=== PATIENT | female | born 1975 | race Caucasian/White ===

== ENCOUNTER 2019-02-06 17:17 | Emergency (ER) | payer OTHER ==
[~2019-02-06] VITALS: Ht 165.1 cm; Wt 64.0 kg
[2019-02-06] MEDS ORDERED: D-ME118S2 PO (17:46)
[2019-02-06] MEDS ORDERED: MELO7.5T29 PO (17:46)
[2019-02-06] MEDS ORDERED: HYDR-3165 PO (17:46)
--- NOTE | 2019-02-06 17:47 | PHYS DOC ---
Past History Past Medical History: No Pertinent History Past Surgical History: Hysterectomy, Other Smoking: Non-smoker Alcohol Use: None Drug Use: None Adult General Chief Complaint Chief Complaint: Neck Pain HPI HPI Patient is a 43-year-old female presents complaining of right-sided facial pain. This started approximately 3 days ago. She was seen by her dentist 2 days ago who felt that was not a dental issue. She was seen by her primary care physician yesterday and started on Augmentin of which she has had 2 doses without any significant improvement in the pain. No pain medicine other than [id number] ibuprofen was advised. Talking to the patient's daughter who presents with the patient, there is some swelling of the right facial region. Nothing seems to make the discomfort significantly better or worse. Pain is severe in intensity. There has been no fever. No change in vision. No photo or phonophobia.[] Review of Systems Review of Systems Constitutional: Denies fever or chills [] Eyes: Denies change in visual acuity, redness, or eye pain [] HENT: Denies nasal congestion or sore throat [] Respiratory: Denies cough or shortness of breath [] Cardiovascular: No chest pain or palpitations[] GI: Denies abdominal pain, nausea, vomiting, bloody stools or diarrhea [] : Denies dysuria or hematuria [] Musculoskeletal: Denies back pain or joint pain [] Integument: Denies rash or skin lesions [] Neurologic: Denies headache, focal weakness or sensory changes [] Endocrine: Denies polyuria or polydipsia [] All other systems were reviewed and found to be within normal limits, except as documented in this note. Allergies Allergies Allergies Coded Allergies Type Severity Reaction Last Updated Verified No Known Drug Allergies 02/06/19 No Physical Exam Physical Exam Constitutional: Well developed, well nourished, mild discomfort, non-toxic appearance. [] HENT: Normocephalic, atraumatic, bilateral external ears normal, oropharynx moist, no oral exudates, nose normal. No dental tenderness to percussion. There is swelling over the right zygoma. Decreased transillumination over the right maxillary sinus. Tenderness to percussion over the right maxillary sinus.[] Eyes: PERRLA, EOMI, conjunctiva normal, no discharge. [] Neck: Normal range of motion, no tenderness, supple, no stridor. Shotty lymphadenopathy is present. No nuchal rigidity. [] Cardiovascular:Heart rate regular rhythm, no murmur [] Lungs & Thorax: Bilateral breath sounds clear to auscultation [] Abdomen: Not examined. [] Skin: Warm, dry, no erythema, no rash. [] Back: No tenderness, no CVA tenderness. [] Extremities: No tenderness, no cyanosis, no clubbing, ROM intact, no edema. [] Neurologic: Alert and oriented X 3, normal motor function, normal sensory function, no focal deficits noted. [] Psychologic: Affect normal, judgement normal, mood normal. [] Current Patient Data Vital Signs Vital Signs Date Time Temp Pulse Resp B/P (MAP) Pulse Ox O2 Delivery O2 Flow Rate FiO2 02/06/19 17:20 98.6 84 20 99 Room Air EKG EKG [] Radiology/Procedures Radiology/Procedures [] Course & Med Decision Making Course & Med Decision Making Pertinent Labs and Imaging studies reviewed. (See chart for details) Medical decision making: Patient appears to have mastoiditis. She is on antibiotics. Do not believe that these have had enough time to exert and the fact versus this being a viral process. There is no evidence of meningitis or encephalitis. We will attempt better pain management as well as decongestant therapy.[] Dragon Disclaimer Dragon Disclaimer This electronic medical record was generated, in whole or in part, using a voice recognition dictation system. Departure Departure: Impression: Primary Impression: Sinusitis Disposition: 01 HOME, SELF-CARE Condition: IMPROVED Referrals: JAM ROSALES (PCP) Follow-up in 2 days Patient Instructions: Sinusitis Additional Instructions: Drink plenty of fluids. Follow-up with your regular doctor in 2 days. Take medication as prescribed. Return to the ER if worsening discomfort or any other concerns. Scripts D-Methorphan Hb/Prometh Hcl (PROMETHAZINE-DM SYRUP) 118 Ml Syrup 5 ML PO PRN Q4HRS for CONGESTION, #120 ML Prov: TENZIN CAHCON DO 02/06/19 Hydrocodone Bit/Acetaminophen (NORCO 5-325 TABLET) 1 Each Tablet 1-2 TAB PO Q4-6HRS for severe pain, #20 TAB Prov: TENZIN CHACON DO 02/06/19 Meloxicam (MELOXICAM) 7.5 Mg Tablet 7.5 MG PO DAILY for PAIN, #20 TAB Prov: TENZIN CHACON DO 02/06/19 Problem Qualifiers Primary Impression: Sinusitis Sinusitis location: maxillary Chronicity: acute Recurrence: not specified as recurrent Qualified Codes: J01.00 - Acute maxillary sinusitis, unspecified TENZIN CHACON DO February 06, 2019 17:47
[2019-02-06 17:50] VITALS: BP 136/87
[2019-02-06] MEDS ORDERED: HYDROcodone/APAP 5/325MG 1 TAB TABLET PO ONE (18:00)
== END 2019-02-06 17:55 | disposition home or self-care (01) ==
LOC: ER 17:17
DX: J01.00 Acute maxillary sinusitis, unspecified (principal)
CPT/HCPCS: 99283

== ENCOUNTER 2022-01-23 18:29 | Emergency (ER) | payer OTHER ==
[~2022-01-23] VITALS: Ht 165.1 cm; Wt 75.0 kg
[~2022-01-23 18:29] MED LIST: HYDR-3165 PO; MELO7.5T29 PO; PROM118S10 PO
--- NOTE | 2022-01-23 19:26 | PHYS DOC ---
Past History Past Medical History: No Pertinent History Past Surgical History: Hysterectomy, Other Smoking: Non-smoker Alcohol Use: None Drug Use: None General Adult EDM: Chief Complaint: ABDOMINAL PAIN HPI: HPI: "This all started Friday... Some abdomen pain... then started... Nausea, vomiting and diarrhea. Patient had approximately 12 diarrheas a day. 4 vomits a day....I . Was seen at [facility]... They put me on Lomotil.." Patient is a 46 year old female who presents with above hx and complaints acute gastroenteritis of nausea, vomiting, diarrhea and abdomen pain. Patient denies any specific intake of bad food. No recent travel. has not been overseas and is retired Works on the [employer]. 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 Has been exposed to kids that have been ill. Patient has had COVID vaccinations x2 has had flu vaccination this season. No history of irritable bowel, colitis, trauma, fever or chills. Does have generalized malaise and arthralgia. Patient states she feels like she is getting dehydrated there is some localization of pain in epigastric and right upper quadrant on rebound. Pt. has generalized abdomen tenderness. Review of Systems: Review of Systems: Constitutional: Denies fever or chills Eyes: Denies change in visual acuity HENT: Denies nasal congestion or sore throat Respiratory: Denies cough or shortness of breath Cardiovascular: Denies chest pain or edema GI: Complains of abdominal pain, nausea, vomiting, and diarrhea : Denies dysuria Musculoskeletal: Denies back pain or joint pain Integument: Denies rash Neurologic: Denies headache, focal weakness or sensory changes Endocrine: Denies polyuria or polydipsia Lymphatic: Denies swollen glands Psychiatric: Denies depression or anxiety Family History: Family History: Gallbladder disease with mother she had hers out at approximately age 46 Current Medications: Current Meds: See nursing for home meds Allergies: Allergies: Allergies Coded Allergies Type Severity Reaction Last Updated Verified No Known Drug Allergies 02/06/19 No Physical Exam: PE: Constitutional: Moderate acute distress, non-toxic appearance. [] HENT: Normocephalic, atraumatic, bilateral external ears normal, oropharynx dry, no oral exudates, nose normal. [] Eyes: PERRLA, EOMI, conjunctiva normal, no discharge. [] Neck: Normal range of motion, no tenderness, supple, no stridor. [] Cardiovascular:Heart rate regular rhythm, no murmur [] Lungs & Thorax: Bilateral breath sounds equal at apex auscultation [] Abdomen: Bowel sounds hyperactive, soft, normalize tenderness, no masses, no pulsatile masses. Rebound to epigastric and right upper quadrant. Old surgery scar. Skin: Warm, dry, no erythema, no rash. [] Back: No tenderness, no CVA tenderness. [] Extremities: No tenderness, no cyanosis, no clubbing, ROM intact, no edema. No Trousseau sign. No cording. Neurologic: Alert and oriented X 3, normal motor function, normal sensory function, no focal deficits noted. [] Psychologic: Affect anxious,, judgement normal, mood normal. [] EKG: EKG: My interpretation EKG shows a sinus rhythm at 61 bpm with right bundle branch block. No findings of acute STEMI of contralateral changes. [] Radiology/Procedures: Radiology/Procedures: [][place] [address] IMAGING REPORT Signed PATIENT: SUJATA RUSHING ACCOUNT: [id number] : 1975 LOCATION: ER AGE: 46 SEX: F EXAM STATUS: REG ER ORD. PHYSICIAN: ALEN ANN MD REASON: Abdomen pain, nausea, vomiting, diarrhea PROCEDURE: ACUTE ABDOMEN SERIES EXAMINATION: XR ABDOMEN COMP ACUTE CLINICAL HISTORY: Abdomen pain, nausea, vomiting, diarrhea EXAM DATE/TIME: 01/23/2022 8:37 PM COMPARISON: None FINDINGS: Lines, Tubes, and Devices: None. Cardiomediastinal Silhouette: Borderline cardiomegaly. Lungs and Pleura: No evidence of focal airspace consolidation, pleural effusion, or pneumothorax. Bones and Soft Tissues: No acute osseous abnormality. Mild dextroconvex curvature in the lumbar spine, possibly positional. Abdomen: Nonobstructive bowel gas pattern. No evidence of pneumoperitoneum or suspicious abdominal calcifications. IMPRESSION: Nonobstructive bowel gas pattern. Borderline cardiomegaly. Electronically signed by: Ayaz Ceron DO (01/23/2022 9:31 PM) [facility] DICTATED AND SIGNED BY: AYAZ CERON DO DATE: 01/23/222128 CC: JAM ROSALES; ALEN ANN MD ~ Heart Score: C/O Chest Pain: N/A Risk Factors: Risk Factors: DM, Current or recent (<one month) smoker, HTN, HLP, family history of CAD, obesity. Risk Scores: Score 0 - 3: 2.5% MACE over next 6 weeks - Discharge Home Score 4 - 6: 20.3% MACE over next 6 weeks - Admit for Clinical Observation Score 7 - 10: 72.7% MACE over next 6 weeks - Early Invasive Strategies Course & Med Decision Making: Course & Med Decision Making Pertinent Labs and Imaging studies reviewed. (See chart for details) Stay on a clear fluid diet only for the next 2 days. No solids. No milk products. Follow-up primary care. Take Zofran 8 mg at 4 times a day for active vomiting. Tylenol and ibuprofen for discomfort. Impression: 1. Abdomen pain 2. Acute gastroenteritis nausea vomiting and diarrhea 3. Dehydration. [] Dragon Disclaimer: Dragon Disclaimer: This electronic medical record was generated, in whole or in part, using a voice recognition dictation system. Departure Departure: Referrals: JAM ROSALES (PCP) Scripts Ondansetron (ONDANSETRON ODT) 8 Mg Tab.rapdis 8 MG PO QIDPRN PRN for nv, #30 TAB Prov: ALEN ANN MD 01/24/22 Annita Disclaimer This chart was dictated in whole or in part using Voice Recognition software in a busy, high-work load, and often noisy Emergency Department environment. It may contain unintended and wholly unrecognized errors or omissions. ALEN ANN MD January 23, 2022 19:26
[2022-01-23] MEDS ORDERED: IV RINGERS SOLUTION,LACTATED 1,000 ML IV SCH (20:15)
[2022-01-23] MEDS ORDERED: KETOROLAC 30 MG/ML VIAL. IVP ONE (20:15)
[2022-01-23] MEDS ORDERED: FAMOTIDINE 20 MG/2 ML VIAL IVP ONE (20:15)
[2022-01-23] MEDS ORDERED: ONDANSETRON PF 4 MG/2 ML VIAL. IVP ONE ×2 (20:15→22:30)
[2022-01-23 20:24] LABS: BACTERIA,URINE FEW /HPF (0-FEW); CLARITY,URINE CLEAR; COLOR,URINE YELLOW; GLUCOSE,URINE NEG (NEG); NITRITE,URINE NEG (NEG); RBC,URINE 0 /HPF (0-2); SQUAMOUS EPITHELIAL CELL,UR FEW /LPF; UROBILINOGEN,URINE 0.2 mg/dL (0.2 mg/dL)
[2022-01-23] MEDS ORDERED: ONDANSETRON PF 4 MG/2 ML VIAL. ONE ×2 (20:41→20:46)
[2022-01-23] MEDS ORDERED: FAMOTIDINE 20 MG/2 ML VIAL ONE (20:41)
[2022-01-23] MEDS ORDERED: KETOROLAC 30 MG/ML VIAL. ONE (20:41)
--- NOTE | 2022-01-23 21:34 | RAD ---
EXAMINATION: XR ABDOMEN COMP ACUTE CLINICAL HISTORY: Abdomen pain, nausea, vomiting, diarrhea EXAM DATE/TIME: 01/23/2022 8:37 PM COMPARISON: None FINDINGS: Lines, Tubes, and Devices: None. Cardiomediastinal Silhouette: Borderline cardiomegaly. Lungs and Pleura: No evidence of focal airspace consolidation, pleural effusion, or pneumothorax. Bones and Soft Tissues: No acute osseous abnormality. Mild dextroconvex curvature in the lumbar spine , possibly positional. Abdomen: Nonobstructive bowel gas pattern. No evidence of pneumoperitoneum or suspicious abdominal ca lcifications. IMPRESSION: Nonobstructive bowel gas pattern. Borderline cardiomegaly. Electronically signed by: Ayaz Tracy DO (01/23/2022 9:31 PM) [email or web address]
[2022-01-23 23:06] LABS: BASO % 1 % (0-3); EOS # 0.3 x10^3/uL (0.0-0.7); EOS % 3 % (0-3); HEMOGLOBIN 14.2 g/dL (12.0-15.5); LYMPH # 2.3 x10^3/uL (1.0-4.8); LYMPH % 26 % (24-48); MEAN CORPUSCULAR HEMOGLOBIN 30 pg (25-35); MEAN CORPUSCULAR HGB CONC 34 g/dL (31-37); MEAN CORPUSCULAR VOLUME 87 fL (79-100); MONO # 0.7 x10^3/uL (0.0-1.1); MONO % 8 % (0-9); NEUT # 5.5 x10^3uL (1.8-7.7); NEUT % 62 % (31-73); PLATELET COUNT 249 x10^3/uL (140-400); RED BLOOD COUNT 4.83 x10^6/uL (3.50-5.40); RED CELL DISTRIBUTION WIDTH 13.1 % (11.5-14.5); WHITE BLOOD COUNT 8.9 x10^3/uL (4.0-11.0)
[2022-01-23 23:09] LABS: ANION GAP 8 (6-14); BLOOD UREA NITROGEN 9 mg/dL (7-20); CALCIUM 8.8 mg/dL (8.5-10.1); CARBON DIOXIDE 26 mmol/L (21-32); CHLORIDE 106 mmol/L (98-107); CREATININE 0.6 mg/dL (0.6-1.0); GFR 108.6; GLUCOSE 80 mg/dL (70-99); POTASSIUM 3.6 mmol/L (3.5-5.1); SODIUM 140 mmol/L (136-145)
[2022-01-23 23:16] LABS: ALBUMIN 3.3 g/dL (3.4-5.0); ALK PHOS 85 U/L (46-116); ALT (SGPT) 25 U/L (14-59); AMYLASE 53 U/L (25-115); AST (SGOT) 13 U/L (15-37); LIPASE 80 U/L (73-393); TOTAL BILIRUBIN 0.2 mg/dL (0.2-1.0); TOTAL PROTEIN 6.2 g/dL (6.4-8.2)
--- NOTE | 2022-01-23 23:19 | EKG ---
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
[2022-01-23 23:27] LABS: DIRECT BILIRUBIN < 0.1 mg/dL (0.0-0.2)
[2022-01-23] MEDS ORDERED: MORPHINE SULFATE 10 MG/ML SYRINGE. SQ ONE (23:30)
[2022-01-23] MEDS ORDERED: MORPHINE SULFATE 10 MG/ML SYRINGE. ONE (23:30)
[2022-01-24 01:00] VITALS: BP 110/62
[2022-01-24] MEDS ORDERED: ONDA8TAB15 PO (01:01)
[2022-01-24] MEDS ORDERED: ONDANSETRON 4MG ODT 4TABLET STARTPACK. PO ONE ×2 (01:12→01:15)
== END 2022-01-24 01:15 | disposition home or self-care (01) ==
LOC: ER 18:29
DX: K52.9 Noninfective gastroenteritis and colitis, unspecified (principal); E86.0 Dehydration; Z90.710 Acquired absence of both cervix and uterus
CPT/HCPCS: 36415; 74022; 80048; 80076; 81001; 81025; 82150; 82550; 83690; 84484; 85025; 85610; 85730; 93005; 96361; 96372; 96374; 96375; 99285; J1885; J2270; J2405; J3490; J7120; Q0162